=== PATIENT | female | born 1930 | race Caucasian/White ===

== ENCOUNTER 2019-01-16 14:21 | Outpatient (CLI) | payer MEDICARE ==
--- NOTE | 2019-01-16 14:54 | CT ---
CT Brain WO Con: 01/16/2019 12:00 AM CLINICAL HISTORY: History of hydrocephalus and shunt catheter placement. IMAGING TECHNIQUE: Multiple CT images were obtained of the brain without IV contrast. COMPARISON: Prior CT the brain dated November 03, 2014 FINDINGS: Brain: There is a stable area of encephalomalacia seen within the right parietal lobe, adjacent to t he right parietal approach ventriculostomy catheter. This is stable. Ventricles: Ventricular size is unchanged without pino hydrocephalus. The ventricular shunt catheter tip projects in the region of the left frontal horn. Shunt catheter tubing appears intact along its visualized course.. Skull: The skull is intact. Visualized Paranasal sinuses: Clear.. Mastoid air cells:There is stable opacification of the right mastoid air cells. Extracranial soft tissues:Normal. IMPRESSION: Stable exam. No hydrocephalus. Stable right parietal approach ventriculostomy shunt catheter.
== END 2019-01-16 14:22 | disposition home or self-care (01) ==
LOC: TBSIIMAG 14:21
PROVIDERS: ATTEND Surgery
DX: G91.9 Hydrocephalus, unspecified (principal); Z98.2 Presence of cerebrospinal fluid drainage device
CPT/HCPCS: 70450

== ENCOUNTER 2019-04-10 08:07 | Outpatient (CLI) | payer MEDICARE ==
[2019-04-10 17:43] LABS: INR-International Normal Ratio 1.1; PTT 24.5 SEC (22.9-36.1); Prothrombin Time 13.8 SEC (12.0-14.7)
[2019-04-10 17:53] LABS: Anion Gap 12 mmol/L (10-20); BUN (Urea Nitrogen) 29 mg/dL (9.8-20.1); Calc. Creatinine Clearance 0 mL/min (70-130); Calcium 9.7 mg/dL (7.8-10.44); Carbon Dioxide 29 mmol/L (23-31); Chloride 104 mmol/L (98-107); Estimated GFR-MDRD 39; Glucose 112 mg/dL (83-110); Potassium 4.2 mmol/L (3.5-5.1); Sodium 141 mmol/L (136-145)
[2019-04-10 18:52] LABS: Hemoglobin 14.1 g/dL (12.0-16.0); Mean Corpuscular HGB CONC 31.1 g/dL (32.0-36.0); Mean Corpuscular Hemoglobin 29.8 pg (27.0-31.0); Mean Corpuscular Volume 95.7 fL (78.0-98.0); Mean Platelet Volume 11.2 fL (7.4-10.4); Platelet Count 148 thou/uL (130-400); RBC Distribution Width 13.2 % (11.5-14.5); Red Blood Cell (RBC) Count 4.75 mill/uL (4.20-5.40); White Blood Cell (WBC) Count 9.3 thou/uL (4.8-10.8)
== END 2019-04-10 08:08 | disposition home or self-care (01) ==
LOC: LABBT 08:07
PROVIDERS: ATTEND Surgery
DX: Z01.812 Encounter for preprocedural laboratory examination (principal); M47.12 Other spondylosis with myelopathy, cervical region
CPT/HCPCS: 80048; 85027; 85610; 85730

== ENCOUNTER 2019-04-16 09:18 | Day surgery (SDC) | payer MEDICARE ==
[2019-04-10 16:42] VITALS: BMI 28.8
[2019-04-16] MEDS ORDERED: Lidocaine 1% PF 5 ML VIAL ONE (13:03)
[2019-04-16] MEDS ORDERED: Glycopyrrolate 0.2 MG/ML 5 ML SYRINGE ONE (13:03)
[2019-04-16] MEDS ORDERED: Dexamethasone 20 MG/5 ML VIAL ONE (13:03)
[2019-04-16] MEDS ORDERED: EPHEDRINE 25 MG/5 ML SYRINGE ONE ×2 (13:03→15:42)
[2019-04-16] MEDS ORDERED: PROPOFOL 200 MG/20 ML VIAL ONE (13:03)
[2019-04-16] MEDS ORDERED: Ondansetron PF 4 MG/2 ML Vial ONE ×2 (13:03→17:21)
[2019-04-16] MEDS ORDERED: Rocuronium Bromide 10 MG/ML (10ML VIAL) ONE (13:03)
[2019-04-16] MEDS ORDERED: Thrombin 5000 UNITS/5 ML VIAL ONE (13:18)
[2019-04-16] MEDS ORDERED: Bacitracin Zinc Ointment 30 gm TUBE ONE (13:18)
[2019-04-16] MEDS ORDERED: Fentanyl 100 MCG/2 ML VIAL ONE ×3 (13:36→17:33)
[2019-04-16] MEDS ORDERED: Bisacodyl 10 MG SUPP PR PRN (15:26)
[2019-04-16] MEDS ORDERED: Morphine 2 MG/ML SYRINGE SLOW IVP PRN (15:26)
[2019-04-16] MEDS ORDERED: Mag-Al 1200 mg/1200 mg/30 ML UDCUP PO PRN (15:26)
[2019-04-16] MEDS ORDERED: HYDROcodone/Acetaminophen 7.5/325 mg Tablet PO PRN (15:26)
[2019-04-16] MEDS ORDERED: Milk Of Magnesia 30 ML UDCUP PO PRN (15:26)
[2019-04-16] MEDS ORDERED: Fleet Enema 133 ML BOT PR PRN (15:26)
[2019-04-16] MEDS ORDERED: Acetaminophen 325 MG TAB PO PRN (15:26)
[2019-04-16] MEDS ORDERED: HYDROmorphone 2 MG/ML VIAL SLOW IVP PRN (15:36)
[2019-04-16] MEDS ORDERED: Morphine Sulfate 2 MG/ML SYRINGE SLOW IVP PRN (15:36)
[2019-04-16] MEDS ORDERED: Ondansetron HCl/PF 4 MG/2 ML Vial IVP PRN (15:36)
[2019-04-16] MEDS ORDERED: PACU-Morphine 4MG/ML VIAL SLOW IVP PRN (15:36)
[2019-04-16] MEDS ORDERED: Promethazine HCl 25 MG/ML VIAL IM PRN (15:36)
[2019-04-16] MEDS ORDERED: Promethazine HCl 25 MG/ML VIAL SLOW IVP PRN (15:36)
[2019-04-16] MEDS: Sodium Chloride 0.9% 1,000 ML IV SCH (19:48)
[2019-04-16] MEDS: tiZANidine HCl 4 MG TAB PO PRN (20:43)
[2019-04-16] MEDS: Furosemide 20 MG TAB PO SCH (20:43)
[2019-04-16] MEDS: Potassium Chloride 8 MEQ TAB PO SCH (21:00)
[2019-04-16] MEDS: Ondansetron PF 4 MG/2 ML Vial IVP PRN (21:12)
[2019-04-16] MEDS: Ketotifen Fumarate 0.025% Ophth Soln 5 ml Bottle EA EYE SCH (21:14)
[2019-04-17] MEDS: Sodium Chloride 0.9% 1,000 ML IV SCH ×2 (00:02→13:38)
[2019-04-17] MEDS: Acetaminophen/Codeine 30-300mg Tablet PO PRN ×3 (02:05→12:14)
--- NOTE | 2019-04-17 08:11 | OP ---
DATE OF PROCEDURE: 04/16/2019 LOCATION: OR 12. WOUND CLASSIFICATION: Type 1 wound. CATALOGUE LIBRARIAN: Polo Palencia PA-C PREPROCEDURE DIAGNOSIS: Multilevel cervical stenosis with myelopathy. POSTPROCEDURE DIAGNOSIS: Multilevel cervical stenosis with myelopathy. PROCEDURE PERFORMED: C3-C4, C4-C5, C5-C6 laminectomies, partial facetectomies, and foraminotomies. DESCRIPTION OF PROCEDURE: After informed consent was obtained from the patient, the patient was brought to the OR. Proper patient, pause, and identification were carried out. She was placed under excellent general endotracheal anesthesia and the Bran Sallie secured to her skull, protecting her shunt. We then placed her prone and cervical neutrality. The pins were then locked in and a linear abundio drawn in the cervical lordotic spine from C3 through C6. This region was sterilely cleansed, prepared, and draped. Proper patient, pause, and identification were carried out. The wound was then opened with combination of sharp, monopolar, and blunt dissection and the C3, C4, C5, C6 dorsal spines and lamina were exposed. Localization film confirmed our area of interest. We then performed C3, C4, C5, C6 laminectomies, partial facetectomies, and foraminotomies with excellent decompression of common dural tube and nerve roots. There was no spinal fluid leak. Hemostasis was maximized throughout. The wound was then closed in anatomic layers following sprinkling of vancomycin powder. The patient then emerged from anesthesia. Job ID: [id number]
[2019-04-17] MEDS: DorzolamidE/Timolol 2%/0.5% Ophth Soln 10 ml Bottle EA EYE SCH (09:00)
[2019-04-17] MEDS: Furosemide 20 MG TAB PO SCH ×2 (09:07→20:55)
[2019-04-17] MEDS: Multivit, Therapeutic 1 TAB PO SCH (09:07)
[2019-04-17] MEDS: Estradiol 1 MG TAB PO SCH (09:08)
[2019-04-17] MEDS: Amlodipine 5 MG TAB PO SCH (09:08)
[2019-04-17] MEDS: Ketotifen Fumarate 0.025% Ophth Soln 5 ml Bottle EA EYE SCH ×2 (09:08→20:55)
[2019-04-17] MEDS: predniSONE 1 MG TAB PO SCH (09:27)
[2019-04-17] MEDS: Potassium Chloride 8 MEQ TAB PO SCH ×2 (09:27→20:55)
--- NOTE | 2019-04-17 09:29 | PRG ---
DATE OF SERVICE: 04/17/2019 Ms. Delaney is postoperative day 1 from multilevel cervical laminectomy. She is doing well this morning. She is not yet mobilized. Neurologically, she is intact with mild myelopathic findings, but I am very pleased with how she is doing at this point. Job ID: [id number]
[2019-04-17] MEDS: tiZANidine HCl 4 MG TAB PO PRN (12:14)
[2019-04-17] MEDS: Atenolol 50 MG TAB PO SCH ×3 (13:32→20:55)
[2019-04-17] MEDS: traMADol HCl 50 MG TAB PO PRN ×2 (14:31→21:51)
[2019-04-17] MEDS: diphenhydrAMINE 25 MG CAP PO PRN (21:51)
[2019-04-18] MEDS: tiZANidine HCl 4 MG TAB PO PRN ×2 (00:36→20:18)
[2019-04-18] MEDS: Ondansetron PF 4 MG/2 ML Vial IVP PRN (00:40)
[2019-04-18] MEDS: Multivit, Therapeutic 1 TAB PO SCH (08:10)
[2019-04-18] MEDS: Furosemide 20 MG TAB PO SCH ×2 (08:10→20:18)
[2019-04-18] MEDS: Amlodipine 5 MG TAB PO SCH (08:11)
[2019-04-18] MEDS: Estradiol 1 MG TAB PO SCH (08:11)
[2019-04-18] MEDS: Atenolol 50 MG TAB PO SCH ×2 (08:12→20:18)
[2019-04-18] MEDS: traMADol HCl 50 MG TAB PO PRN ×2 (08:13→20:19)
[2019-04-18] MEDS: Sodium Chloride 0.9% 1,000 ML IV SCH ×2 (08:16→20:14)
[2019-04-18] MEDS: DorzolamidE/Timolol 2%/0.5% Ophth Soln 10 ml Bottle EA EYE SCH (08:16)
[2019-04-18] MEDS: Ketotifen Fumarate 0.025% Ophth Soln 5 ml Bottle EA EYE SCH ×2 (09:09→20:18)
[2019-04-18] MEDS: Potassium Chloride 8 MEQ TAB PO SCH ×2 (09:10→20:30)
[2019-04-18] MEDS: predniSONE 1 MG TAB PO SCH (09:10)
--- NOTE | 2019-04-18 09:31 | PRG ---
DATE OF SERVICE: 04/18/2019 This is Polo Palencia PA-C dictating a report for Jasper Bowens MD. Rhett is postoperative day #2 having undergone multiple cervical laminectomies. The patient did have a good restful night last night; however, she did wake up with neck pain earlier this morning. She was able to walk to the bathroom according to the patient yesterday. She is a good candidate for inpatient rehab. We will await their final recommendations. The patient is moving all extremities to command and appears to have good strength in the bilateral hands. She has no arm pain or leg pain. Please call with any changes in the patient's neurologic status. Job ID: [id number]
[2019-04-18] MEDS: diphenhydrAMINE 25 MG CAP PO PRN (20:18)
[2019-04-19] MEDS: traMADol HCl 50 MG TAB PO PRN (02:53)
[2019-04-19] MEDS: Atenolol 50 MG TAB PO SCH (08:30)
[2019-04-19] MEDS: DorzolamidE/Timolol 2%/0.5% Ophth Soln 10 ml Bottle EA EYE SCH (08:30)
[2019-04-19] MEDS: Estradiol 1 MG TAB PO SCH (08:31)
[2019-04-19] MEDS: Amlodipine 5 MG TAB PO SCH (08:31)
[2019-04-19] MEDS: Multivit, Therapeutic 1 TAB PO SCH (08:31)
[2019-04-19] MEDS: Furosemide 20 MG TAB PO SCH (08:31)
[2019-04-19] MEDS: Ketotifen Fumarate 0.025% Ophth Soln 5 ml Bottle EA EYE SCH (08:34)
[2019-04-19] MEDS: Sodium Chloride 0.9% 1,000 ML IV SCH (10:10)
[2019-04-19] MEDS: Potassium Chloride 8 MEQ TAB PO SCH (10:28)
[2019-04-19] MEDS: predniSONE 1 MG TAB PO SCH (10:28)
[2019-04-19] MEDS ORDERED: traMADol HCl 50 MG TAB PO PRN (15:32)
[2019-04-19 15:47] VITALS: BP 174/62; TEMP 98.8
--- NOTE | 2019-04-20 01:11 | DIS ---
DATE OF ADMISSION: 04/16/2019 DATE OF DISCHARGE: 04/19/2019 DISCHARGE DIAGNOSES: 1. Hypertension. 2. Coronary artery disease. 3. Normal pressure hydrocephalus. 4. Cervical stenosis with myelopathy. HOSPITAL COURSE: Ms. Delaney was admitted to undergo C3-C6 cervical laminectomies with Dr. Bowens. The patient's surgery was without complication, where she required several overnight stays in order for adequate pain control and improvement in her mobility. At the time of discharge, the patient was doing well in regard to her neurologic strength. She had excellent and improved bilateral handgrip strength, though it was too early to tell if she had improvement in balance. She again met criteria for discharge to inpatient rehab. She was neurologically intact. Appropriate patient education and outpatient followups were provided to the patient with the understanding to call the office with questions or concerns, but again she was neurologically intact and doing well postoperatively. Job ID: [id number]
== END 2019-04-19 19:00 ==
LOC: SDC 09:18 → SURG A 15:32 → SDC 04-19 19:00
PROVIDERS: ATTEND Surgery
PROC: 0RT30ZZ Resection of Cervical Vertebral Disc, Open Approach (ICD-10-PCS; principal; 2019-04-16)
DX: M48.02 Spinal stenosis, cervical region (principal); M47.12 Other spondylosis with myelopathy, cervical region; Z79.52 Long term (current) use of systemic steroids; Z79.82 Long term (current) use of aspirin; Z79.899 Other long term (current) drug therapy; Z88.0 Allergy status to penicillin; Z88.1 Allergy status to other antibiotic agents; Z66 Do not resuscitate
CPT/HCPCS: 36415; 76000; 86850; 86900; 86901; J1100; J2001; J2405; J2704; J3010; J3370; J3490; J7050; J7512; L0174; Q0163